=== PATIENT | male | born 1955 ===

== ENCOUNTER → 2020-08-16 | Outpatient (CLI) | payer MEDICAID ==
[~2020-08-16] VITALS: Ht 180.3 cm; Wt 119.3 kg
[2020-08-16 09:53] VITALS: BP 118/77
--- NOTE | 2020-08-16 17:14 | Consultation ---
DATE OF CONSULTATION: 08/16/2020 GASTROENTEROLOGY CONSULTATION CONSULTING PHYSICIAN: Bhavesh Das MD. CHIEF COMPLAINT: Dysphagia. HISTORY OF PRESENT ILLNESS: This is a 65-year-old male with numerous medical problems, which I will dictate in a second, has history of hiatal hernia. Last endoscopy was in 2019. Also, there is a question that he had esophageal ring. He is here because he had persistent symptoms despite being on omeprazole 40 mg p.o. daily. PAST MEDICAL HISTORY: 1. History of GERD. 2. Hiatal hernia. 3. Arthritis. 4. Depression. 5. COPD. 6. Hypertension. 7. Inflammatory myofibroma of the lung, status post surgery. PAST SURGICAL HISTORY: Right lung surgery 2012, repeat in 2018. MEDICATIONS: Please see medication reconciliation list. FAMILY HISTORY: Mother had breast cancer. SOCIAL HISTORY: The patient smokes and drinks, but he quit drinking about 25 years ago. No IV drug abuse. ALLERGIES: Allergic to environmental pollen. REVIEW OF SYSTEMS: Positive for endoscopy in 2019 and colonoscopy in 2019, had one colonic polyp then; chronic GERD; chronic constipation; IBS; diarrhea; nausea; vomiting; bloating. PHYSICAL EXAMINATION: VITAL SIGNS: Temperature 97.1, blood pressure 118/77, pulse 80, respirations 20. Height is 5 feet 11 inches. Weight is 263. HEENT: Normocephalic and atraumatic. Sclerae are anicteric. NECK: Supple. No evidence of obvious lymphadenopathy. CARDIOVASCULAR: Regular rate and rhythm. Plus S1, S2. LUNGS: Clear to auscultation bilaterally. ABDOMEN: Positive bowel sounds. Soft and nontender. No rebound. No guarding. No peritoneal sign. EXTREMITIES: No cyanosis, no clubbing, no edema. ASSESSMENT: This is a 65-year-old male with chronic dysphagia, history of chronic GERD, not responding to PPI daily. PLAN: Add baclofen 10 mg at bedtime. Plan to schedule for endoscopy to see how bad is the hiatal hernia, if there is any evidence of esophagitis, if the patient is a candidate for hernia repair. Bhavesh Das M.D. DR: IFRAH JOB#: [id number] CC:
== END | disposition home or self-care (01) ==
LOC: PAN 09:31
DX: R13.10 Dysphagia, unspecified (principal); K21.9 Gastro-esophageal reflux disease without esophagitis; M19.90 Unspecified osteoarthritis, unspecified site; F32.9 Major depressive disorder, single episode, unspecified; J44.9 Chronic obstructive pulmonary disease, unspecified; I10 Essential (primary) hypertension; F17.200 Nicotine dependence, unspecified, uncomplicated; K59.09 Other constipation; K58.9 Irritable bowel syndrome, unspecified; K63.5 Polyp of colon; K44.9 Diaphragmatic hernia without obstruction or gangrene